=== PATIENT | male | born 1995 | race Hispanic/Latino ===

== ENCOUNTER 2018-02-27 19:06 | Emergency (ER) | payer BC ==
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
[2018-02-27 22:54] VITALS: BP 123/73; PULSE 71; RESP 12; TEMP 98.5
[2018-02-28 04:56] VITALS: O2SAT 99
--- NOTE | 2018-02-28 12:59 | US ---
Date of service: 02/27/2018 PROCEDURE: Abdominal ultrasound HISTORY: r/o hernia v. hematoma of bruise site, LLQ COMPARISON: None available. TECHNIQUE: Standard protocol for this study/examination. FINDINGS: Abdominal wall left lower quadrant fluid collection. This is avascular. The area of interest measures 1.6 x 2.5 x 4.6 cm. IMPRESSION: Avascular fluid collection/abscess/hematoma. This corresponds to findings on physical examination. Concordant findings (preliminary report) provided by Jakub.
== END 2018-02-27 22:54 | disposition home or self-care (01) ==
LOC: H.ER 19:06
DX: S30.1XXA Contusion of abdominal wall, initial encounter (principal); W22.8XXA Striking against or struck by other objects, initial encounter; Y92.89 Other specified places as the place of occurrence of the external cause; Z88.0 Allergy status to penicillin